=== PATIENT | female | born 1995 | race Hispanic/Latino ===

== ENCOUNTER 2023-04-12 10:46 | Emergency (ER) | payer OTHER, SELFPAY ==
[2023-04-12 10:58] VITALS: PULSE 60; RESP 14; TEMP 36.6; O2SAT 99; BMI 28.5
[2023-04-12] MEDS: PROPARACAINE 0.5% OPHTH SOL 1 DROPS EYE-RIGHT ×4 (11:05→12:37)
[2023-04-12 12:10] VITALS: BP 118/78; PULSE 82; RESP 18; O2SAT 99
[2023-04-12] MEDS: FLUORESCEIN 1 MG STRIP EYE-RIGHT (12:18)
--- NOTE | 2023-04-12 12:29 | ED_ITS ---
HPI - General Adult General Chief complaint: Eye Problems Stated complaint: cornea problem from contacts Time Seen by Provider: 04/12/23 12:17 Source: patient Mode of arrival: Ambulatory History of Present Illness HPI narrative: 27-year-old female who is here for evaluation of right eye discomfort. She does wear contact lenses. States yesterday she put in a new pair of contact lenses. It was when she took them out as when she would the discomfort. She has had symptoms in the past and was diagnosed with a corneal abrasion. She denies any specific trauma. Related Data Previous Rx's Medication Instructions Recorded hydrocodone 5 mg-acetaminophen 325 1 tab PO Q4-6H PRN pain #7 tabs 04/12/23 mg tablet moxifloxacin 0.5 % eye drops See Rx Instructions .Route 04/12/23 .COMPLEX #3 mL Allergies Allergy/AdvReac Type Severity Reaction Status Date / Time No Known Drug Allergies Allergy Verified 04/12/23 11:04 Review of Systems Eyes Eyes: Reports system reviewed and no additional complaints, except as documented ENT Ears, Nose, Mouth, and Throat: Reports system reviewed and no additional complaints, except as documented Integumentary/Breasts Skin/Breast: Reports system reviewed and no additional complaints, except as documented Neurologic Neurologic: Reports system reviewed and no additional complaints, except as documented Patient History Social History Smoking Status: Never smoker Smoking Status: Never smoker alcohol intake frequency: 0-2 drinks per day Substance Use Type: does not use Exam Initial Vital Signs Initial Vital Signs: Vital Signs Temperature 97.8 F 04/12/23 10:58 Pulse Rate 60 04/12/23 10:58 Respiratory Rate 14 04/12/23 10:58 Pulse Oximetry 99 04/12/23 10:58 Oxygen Delivery Method Room Air 04/12/23 10:58 Const General: cooperative and comfortable HENND Head: normal to inspection and normocephalic Eyes Other: Fluorescein was used. She has a corneal abrasion in the right eye. No foreign body noted. Conjunctiva is injected. Eyelids unremarkable. Skin General: no rashes or lesions noted Neuro General: patient alert, patient awake, patient oriented x3 and moves all extremities Extrem General: normal to inspection and capillary refill normal Course Orders Ordered: Discontinued Medications Hydrocodone Bitart/Acetaminophen (Hydrocodone/Acet 5/325 Tablet) 1 tab PO NOW ONE Stop: 04/12/23 13:03 Last Admin: 04/12/23 13:06 Dose: 1 tab Documented By: CISCO Erythromycin (Erythromycin Ophth 1 Gm Oint) 1 applic EYE-RIGHT NOW ONE Stop: 04/12/23 12:30 Last Admin: 04/12/23 12:37 Dose: 1 applic Documented By: CISCO Fluorescein Sodium (Fluorescein 1 Mg Strip) 1 mg EYE-RIGHT NOW ONE Stop: 04/12/23 12:10 Last Admin: 04/12/23 12:18 Dose: 1 mg Documented By: CISCO Proparacaine HCl (Proparacaine 0.5% Ophth Bisi) 1 drops EYE-RIGHT PRN PRN PRN Reason: Pain, Severe (7-10) Last Admin: 04/12/23 12:37 Dose: 1 drop Documented By: Admin: 04/12/23 11:58 Dose: 1 drop Documented By: Admin: 04/12/23 11:29 Dose: 1 drop Documented By: Admin: 04/12/23 11:05 Dose: 1 drop Documented By: CISCO Vital Signs Vital signs: Vital Signs - 8 hr 04/12/23 10:58 04/12/23 12:10 Temperature 97.8 F Pulse Rate 60 82 Respiratory Rate 14 18 Blood Pressure 118/78 Pulse Oximetry 99 99 Oxygen Delivery Method Room Air Room Air Medical Decision Making [facility] Narrative Medical decision making narrative: History and physical exam today is consistent with a corneal abrasion. There was no foreign body noted. Because she does wear contact lenses we will cover her with moxifloxacin drops. She was given erythromycin here more just to soothe the eye until she can get down to get her drops. Also prescribed pain medication. She was advised not to use her contact lenses until her symptoms have improved and to contact her eye provider for follow-up. She expressed understanding and agreement. There was no sign of corneal ulceration. Discharge Plan Departure Patient Disposition: Home Clinical Impression: Corneal abrasion Instructions: DI for Corneal Abrasion Activity Restrictions/Additional Instructions: Take the eyedrops as directed. Do not wear contact lenses until you have finished with the course of antibiotics. Contact your primary I provider for follow-up. Return to the emergency department for new symptoms Prescriptions: New moxifloxacin 0.5 % drops See Rx Instructions .ROUTE .COMPLEX Qty: 3 1RF Rx Instructions: 2 drp into right eye Q2H while awake for 2 days then 2 drp right eye Q4H while awake for another 5 days hydrocodone-acetaminophen 5-325 mg tablet 1 tab PO Q4-6H PRN (Reason: pain) Qty: 7 0RF Referrals: ProviderAlice [Primary Care Provider] - Stand Alone Forms: Patient Portal/API, Work Release Note
[2023-04-12] MEDS: ERYTHROMYCIN OPHTH 1 GM OINT 1 APPLIC EYE-RIGHT (12:37)
[2023-04-12] MEDS: HYDROCODONE/ACET 5/325 TABLET 1 TAB PO (13:06)
--- NOTE | 2023-04-12 13:07 | PC.NURSE ---
Pt called from waiting room re: pain. Discussed w/ Dr. Hines who ordered [place] x 1. Admin to pt w/ ice pack for pain control.
== END 2023-04-12 12:47 | disposition home or self-care (01) ==
PROVIDERS: Emergency Provider Emergency Medicine
DX: S05.01XA Injury of conjunctiva and corneal abrasion without foreign body, right eye, initial encounter (principal)
CPT/HCPCS: 99283